=== PATIENT | female | born 2000 | race Caucasian/White ===

== ENCOUNTER → 2021-06-04 00:46 | Observation (INO) ==
[2021-06-03 23:41] LABS: Amorphous Sediment,Urine Few per hpf (None-Few); Bacteria,Urine Few per hpf (None-Few); Bilirubin,Urine Negative (Negative); Blood,Urine Negative (Negative); Calcium Oxalate Crystals,Urine Present per hpf; Clarity,Urine Turbid (Clear); Color,Urine Light-Yellow (Yellow); Glucose,Urine (UA) Normal (Normal); Ketones,Urine Negative (Negative); Leukocyte Esterase,Urine Small (Negative); Mucus,Urine Few per lpf (None-Few); Nitrite,Urine Negative (Negative); Protein,Urine Trace mg/dL (Neg-Trace); RBC,Urine 0-3 per hpf (0-3); Specific Gravity,Urine 1.023 (1.010-1.025); Squamous Epithelial Cell,Urine Few per hpf (None-Few)
== END | disposition home or self-care (01) ==
LOC: 1NENULAB
PROVIDERS: ADMIT Obstetrics & Gynecology; ATTEND Obstetrics & Gynecology

== ENCOUNTER 2021-06-12 07:43 | Inpatient (IN) ==
[2021-06-12] MEDS ORDERED: Naloxone 0.4 MG/ML INJ IVP PRN (08:16)
[2021-06-12] MEDS ORDERED: *HR* Nalbuphine 10 MG/ML AMPUL IV PRN (08:16)
[2021-06-12] MEDS ORDERED: Famotidine 20 MG/2 ML VIAL IVP PRN (08:16)
[2021-06-12] MEDS ORDERED: Ondansetron 4 MG/2 ML VIAL IVP PRN (08:18)
[2021-06-12] MEDS ORDERED: Ringers Solution, Lactated 1,000 ML IVC SCH (08:30)
[2021-06-12] MEDS ORDERED: miSOPROStoL 25 MCG TABLET VG ONE (08:33)
[2021-06-12] MEDS ORDERED: Oxytocin 30 UNIT/503 ML BAG IVC SCH ×2 (08:45→21:01)
[2021-06-12] MEDS ORDERED: EPHEDrine 50 MG/ML VIAL IVP PRN (08:46)
[2021-06-12] MEDS ORDERED: Epidural Premix (fent/bupiv) 110 ML EP SCH (09:00)
[2021-06-12 09:11] LABS: Basophils % 0.2 %; Eosinophils % 0.3 %; Hematocrit 34.9 % (35.3-44.9); Hemoglobin 11.2 g/dL (11.5-15.4); Immature Granulocytes % 0.5 % (0-4); Lymphocytes % 16.9 %; Mean Corpuscular HGB Conc 32.1 g/dL (31.6-35.5); Mean Corpuscular Hemoglobin 24.8 pg (28.0-33.3); Mean Corpuscular Volume 77.2 fL (83.0-100.0); Mean Platelet Volume 10.9 fL (9.4-12.4); Monocytes # 0.6 K/mcL (0.0-1.3); Monocytes % 4.8 %; Neutrophils # 9.2 K/mcL (1.6-8.9); Platelet Count 217 K/mcL (140-400); Red Blood Count 4.52 M/mcL (3.82-4.97); Segmented Neutrophils % 77.3 %; White Blood Count 11.8 K/mcL (4.3-11.1)
[2021-06-12 09:40] LABS: Influenza A PCR Negative (Negative); Influenza B PCR Negative (Negative); Resp. Syncytial Virus PCR Negative (Negative); SARS-CoV-2 by PCR (In House) Negative (Negative)
[2021-06-12 12:55] LABS: Amphetamine Screen,Urine Negative ng/mL (Cutoff=1000); Barbiturate Screen,Urine Negative ng/mL (Cutoff=200); Benzodiazepines Screen,Urine Negative ng/mL (Cutoff=200); Cannabinoid Screen,Urine Negative ng/mL (Cutoff = 50); Cocaine Screen,Urine Negative ng/mL (Cutoff= 300); Opiate Screen,Urine Negative ng/mL (Cutoff=300); Phencyclidine Screen,Urine Negative ng/mL (Cutoff=25)
[2021-06-12] MEDS ORDERED: Lanolin 7 G OINT...G. TP PRN (21:01)
[2021-06-12] MEDS ORDERED: OXYTOCIN/RINGERS LACTATE 10 UNIT/166.6 ML BAG IVC ONE (21:01)
[2021-06-12] MEDS ORDERED: Ondansetron ODT 4 MG TAB.RAPDIS SL PRN (21:01)
[2021-06-12] MEDS ORDERED: *HR* OxyCODONE Immed Rel 5 MG TABLET PO PRN (21:01)
[2021-06-12] MEDS ORDERED: Benzocaine/Menthol 56 GM AEROSOL SPRAY TP PRN (21:01)
[2021-06-12] MEDS: Acetaminophen 325 MG TABLET PO SCH (22:55)
[2021-06-12] MEDS: Ibuprofen 600 MG TABLET PO SCH (22:55)
[2021-06-13 05:20] LABS: Basophils % 0.1 %; Eosinophils % 0.2 %; Hematocrit 28.5 % (35.3-44.9); Hemoglobin 9.2 g/dL (11.5-15.4); Immature Granulocytes % 0.3 % (0-4); Lymphocytes # 2.4 K/mcL (0.6-4.6); Lymphocytes % 16.7 %; Mean Corpuscular HGB Conc 32.3 g/dL (31.6-35.5); Mean Corpuscular Hemoglobin 25.1 pg (28.0-33.3); Mean Corpuscular Volume 77.7 fL (83.0-100.0); Mean Platelet Volume 11.7 fL (9.4-12.4); Monocytes % 7.1 %; Neutrophils # 10.8 K/mcL (1.6-8.9); Platelet Count 173 K/mcL (140-400); Red Blood Count 3.67 M/mcL (3.82-4.97); Red Cell Distribution Width 12.9 % (11.5-14.5); Segmented Neutrophils % 75.6 %; White Blood Count 14.2 K/mcL (4.3-11.1)
[2021-06-13] MEDS: Acetaminophen 325 MG TABLET PO SCH ×2 (07:42→07:57)
[2021-06-13] MEDS: Ibuprofen 600 MG TABLET PO SCH ×2 (07:43→07:56)
[2021-06-13 08:24] VITALS: O2SAT 100
[2021-06-13] MEDS ORDERED: Prenatal Vit/FA 1 EACH TABLET PO SCH (09:00)
[2021-06-13 15:25] VITALS: BP 131/85; PULSE 97; TEMP 97.8
== END 2021-06-13 20:20 | disposition home or self-care (01) | DRG 806 ==
LOC: 1NENULAB 07:43 → 1NENUOBS 20:51
PROVIDERS: ADMIT Obstetrics & Gynecology; ATTEND Obstetrics & Gynecology